=== PATIENT | female | born 1985 | race Caucasian/White ===

== ENCOUNTER 2018-01-24 22:46 | Emergency (ER) | payer MEDICAID, OTHER ==
[~2018-01-24] VITALS: Ht 152.4 cm; Wt 63.1 kg
[~2018-01-24 22:46] MED LIST: ALBU8.5H8 IH; CLIN150C2 PO
[2018-01-24 22:58] VITALS: BP 145/101
[2018-01-24] MEDS ORDERED: clindamycin phosphate 150mg/ml inj. IM ONE (23:50)
[2018-01-24] MEDS ORDERED: CEPH-571 PO (23:51)
[2018-01-24] MEDS ORDERED: SULF1TAB49 PO (23:51)
== END 2018-01-25 00:21 | disposition home or self-care (01) ==
LOC: ER 22:47
DX: L02.416 Cutaneous abscess of left lower limb (principal); F15.90 Other stimulant use, unspecified, uncomplicated; F11.90 Opioid use, unspecified, uncomplicated; Z88.6 Allergy status to analgesic agent; Z79.2 Long term (current) use of antibiotics; Z79.899 Other long term (current) drug therapy
CPT/HCPCS: 96372; 99283; J3490

== ENCOUNTER 2018-03-09 16:02 | Emergency (ER) | payer MEDICAID, OTHER ==
[~2018-03-09] VITALS: Ht 157.5 cm; Wt 68.0 kg
[~2018-03-09 16:02] MED LIST changes: +CEPH-571 PO; -CLIN150C2 PO
[2018-03-09 16:23] VITALS: BP 151/103
[2018-03-09] MEDS ORDERED: LIDOcaine 1% w/EPI 1:100,000 30ml vial (MDV) IJ ONE (16:30)
== END 2018-03-09 17:32 | disposition left against medical advice (07) ==
LOC: ER 16:02
DX: L02.414 Cutaneous abscess of left upper limb (principal); L02.416 Cutaneous abscess of left lower limb; F15.10 Other stimulant abuse, uncomplicated; Z88.6 Allergy status to analgesic agent
CPT/HCPCS: 99281

== ENCOUNTER 2018-06-11 02:02 | Emergency (ER) | payer OTHER ==
[~2018-06-11] VITALS: Ht 152.4 cm; Wt 69.0 kg
[2018-06-11] MEDS ORDERED: CefTRIAXone 2gm/D5W 50ml 50 ML IV ONE (02:25)
[2018-06-11] MEDS ORDERED: normal saline 1000ML IV soln IV ONE (02:25)
[2018-06-11 03:05] LABS: BASOPHILS % (AUTO) 0.4 % (0-1); EOSINOPHILS # (AUTO) 0.1 X10'3 (0-0.9); EOSINOPHILS % (AUTO) 0.5 % (0-6); HEMATOCRIT 41.8 % (35.0-45.0); HEMOGLOBIN 13.8 g/dl (12.0-16.0); LYMPHOCYTES # (AUTO) 2.1 X10'3 (1.1-4.8); LYMPHOCYTES % (AUTO) 19.3 % (21-51); MEAN CORPUSCULAR HEMOGLOBIN 26.7 PG (27.0-31.0); MEAN CORPUSCULAR HGB CONC 32.9 g/dL (33.0-36.5); MEAN CORPUSCULAR VOLUME 81.2 FL (78-98); MEAN PLATELET VOLUME 8.4 FL (7.4-10.4); MONOCYTES # (AUTO) 0.5 X10'3 (0-0.9); MONOCYTES % (AUTO) 4.3 % (2-12); NEUTROPHILS # (AUTO) 8.2 X10'3 (1.8-7.7); NEUTROPHILS % (AUTO) 75.5 % (42-75); PLATELET COUNT 250 X10'3 (140-440); RED BLOOD COUNT 5.15 X10'6 (4.20-5.60); RED CELL DISTRIBUTION WIDTH 14.8 % (11.5-14.5); WHITE BLOOD COUNT 10.8 X10'3 (4.5-11.0)
[2018-06-11 03:23] LABS: ALBUMIN 3.2 G/DL (3.4-5.0); ANION GAP 11 (8-16); BILIRUBIN,TOTAL 0.3 MG/DL (0.1-1.0); BLOOD UREA NITROGEN 12 MG/DL (7-18); BUN/CREATININE RATIO 12.9 (6.6-38.0); CALCIUM 8.6 MG/DL (8.5-10.1); CHLORIDE 101 MMOL/L (99-107); CREATININE 0.93 MG/DL (0.40-0.90); GLUCOSE 132 MG/DL (70-104); MAGNESIUM 1.7 MG/DL (1.5-2.4); PARTIAL THROMBOPLASTIN TIME 30 SECONDS (22-32); POTASSIUM 3.7 MMOL/L (3.5-5.1); PROTHROMBIN TIME 10.2 SECONDS (9.0-12.0); SODIUM 137 MMOL/L (135-145); TOTAL CARBON DIOXIDE 25.4 MMOL/L (24-32); TOTAL PROTEIN 7.4 G/DL (6.4-8.2); eGFR 70 ML/MIN
[2018-06-11 03:24] LABS: ALANINE AMINOTRANSFERASE 20 U/L (12-78); ALBUMIN/GLOBULIN RATIO 0.8 (1.1-1.5); ALKALINE PHOSPHATASE 69 IU/L (46-116); ASPARTATE AMINO TRANSFERASE 14 U/L (10-37)
[2018-06-11 03:59] VITALS: BP 158/102
[2018-06-11] MEDS ORDERED: CEPH-572 PO (04:01)
[2018-06-11] MEDS ORDERED: CLIN150C8 PO (04:01)
== END 2018-06-11 04:41 | disposition home or self-care (01) ==
LOC: ER 02:03
DX: L03.116 Cellulitis of left lower limb (principal); L03.115 Cellulitis of right lower limb; F15.90 Other stimulant use, unspecified, uncomplicated; F11.90 Opioid use, unspecified, uncomplicated; Z88.6 Allergy status to analgesic agent; Z79.2 Long term (current) use of antibiotics; Z79.899 Other long term (current) drug therapy
CPT/HCPCS: 36415; 71045; 80053; 83605; 83735; 84145; 85025; 85610; 85730; 87040; 93005; 96365; 99284; J0696; J7030

== ENCOUNTER 2020-03-22 11:16 | Emergency (ER) | payer SELFPAY ==
[~2020-03-22] VITALS: Ht 160 cm; Wt 68.2 kg
[~2020-03-22 11:16] MED LIST changes: +CLIN150C8 PO
[2020-03-22 12:15] VITALS: BP 158/108
== END 2020-03-22 12:22 | disposition home or self-care (01) ==
LOC: ER 11:17
DX: R09.81 Nasal congestion (principal); J02.9 Acute pharyngitis, unspecified; R42 Dizziness and giddiness; I10 Essential (primary) hypertension; Z87.448 Personal history of other diseases of urinary system; F17.200 Nicotine dependence, unspecified, uncomplicated; Z88.6 Allergy status to analgesic agent; Z79.899 Other long term (current) drug therapy; Z20.828 Contact with and (suspected) exposure to other viral communicable diseases
CPT/HCPCS: 36415; 87635; 99283

== ENCOUNTER 2022-01-02 10:07 | Emergency (ER) | payer MEDICAID ==
[~2022-01-02 10:07] MED LIST changes: +ALBU8.5H17 IH; -ALBU8.5H8 IH
[2022-01-02 11:57] LABS: HIV ANTIBODY 1&2 RAPID NON-REACTIVE (Neg)
--- NOTE | 2022-01-02 12:12 | NUR ---
PT HERE FOR EXPOSURE DRAW, NO MEDICAL REQUESTS.
[2022-01-03 16:06] LABS: HBSAG SCREEN Negative (Negative); HEPATITIS C ANTIBODY >11.0 s/co ratio (0.0-0.9)
== END 2022-01-02 12:14 | disposition home or self-care (01) ==
LOC: ER 10:07
DX: Z02.83 Encounter for blood-alcohol and blood-drug test (principal)
CPT/HCPCS: 36415; 86703; 86706; 86803; 87340

== ENCOUNTER 2022-06-22 22:10 | Emergency (ER) | payer MEDICAID ==
[~2022-06-22] VITALS: Ht 152.4 cm; Wt 75.0 kg
[2022-06-22 22:15] VITALS: BP 152/100
--- NOTE | 2022-06-22 22:58 | NUR ---
Patient not in exam room
[2022-06-22 23:42] LABS: URINE HCG NEGATIVE (NEG)
[2022-06-22 23:43] LABS: CLARITY,URINE SLIGHTLY CLOUDY (Clear); COLOR,URINE YELLOW (Yellow); GLUCOSE, URINE NEGATIVE (Neg); KETONES,URINE NEGATIVE (Neg); LEUKOCYTE ESTERASE ,URINE SMALL (Neg); NITRITES, URINE NEGATIVE (Neg); OCCULT BLOOD,URINE SMALL (Neg); PROTEIN,URINE TRACE mg/dl (Neg); UROBILINOGEN,URINE 0.2 E.U/dL (0.2-1.0)
[2022-06-22 23:52] LABS: UA COLLECTION TYPE NON-SPECIFIED
[2022-06-22 23:54] LABS: AMORPHOUS URATES 1+; BACTERIA,URINE FEW /HPF (Neg); MUCUS STRANDS FEW /LPF (Neg); SQUAMOUS EPITHELIAL CELL,UR FEW /LPF (FEW)
[2022-06-22 23:55] LABS: WBC CLUMPS,URINE FEW /HPF (NEGATIVE)
== END 2022-06-22 23:15 | disposition left against medical advice (07) ==
LOC: ER 22:11
DX: R10.9 Unspecified abdominal pain (principal); I10 Essential (primary) hypertension; Z53.21 Procedure and treatment not carried out due to patient leaving prior to being seen by health care provider; Z88.6 Allergy status to analgesic agent; Z79.899 Other long term (current) drug therapy
CPT/HCPCS: 81001; 81025; 87088

== ENCOUNTER 2022-06-24 00:35 | Inpatient (IN) | payer MEDICAID ==
[~2022-06-24] VITALS: Ht 152.4 cm; Wt 85.0 kg
[2022-06-24 01:19] LABS: BASOPHILS % (AUTO) 0.1 % (0-1); EOSINOPHILS % (AUTO) 0.1 % (0-6); HEMATOCRIT 35.5 % (35.0-45.0); HEMOGLOBIN 11.3 g/dl (12.0-16.0); LYMPHOCYTES # (AUTO) 1.9 X10'3 (1.1-4.8); LYMPHOCYTES % (AUTO) 9.3 % (21-51); MEAN CORPUSCULAR HEMOGLOBIN 22.4 PG (27.0-31.0); MEAN CORPUSCULAR HGB CONC 31.9 g/dL (33.0-36.5); MEAN CORPUSCULAR VOLUME 70.4 FL (78-98); MEAN PLATELET VOLUME 7.9 FL (7.4-10.4); MONOCYTES # (AUTO) 1.5 X10'3 (0-0.9); MONOCYTES % (AUTO) 7.1 % (2-12); NEUTROPHILS # (AUTO) 17.5 X10'3 (1.8-7.7); NEUTROPHILS % (AUTO) 83.4 % (42-75); PLATELET COUNT 258 X10'3 (140-440); RED BLOOD COUNT 5.05 X10'6 (4.20-5.60); RED CELL DISTRIBUTION WIDTH 17.1 % (11.5-14.5); WHITE BLOOD COUNT 20.9 X10'3 (4.5-11.0)
[2022-06-24 01:31] LABS: ALANINE AMINOTRANSFERASE 23 U/L (12-78); ALBUMIN/GLOBULIN RATIO 0.7 (1.1-1.5); ALKALINE PHOSPHATASE 99 IU/L (46-116); ANION GAP 11 (8-16); ASPARTATE AMINO TRANSFERASE 14 U/L (10-37); BLOOD UREA NITROGEN 16 MG/DL (7-18); BUN/CREATININE RATIO 17.6 (6.6-38.0); CALCIUM 8.8 MG/DL (8.5-10.1); CHLORIDE 98 MMOL/L (99-107); CREATININE 0.91 MG/DL (0.40-0.90); GLUCOSE 86 MG/DL (70-104); LIPASE < 50 U/L (73-393); POTASSIUM 3.3 MMOL/L (3.5-5.1); SODIUM 135 MMOL/L (135-145); TOTAL CARBON DIOXIDE 25.8 MMOL/L (24-32); TOTAL PROTEIN 7.6 G/DL (6.4-8.2); eGFR 70 ML/MIN
[2022-06-24] MEDS ORDERED: morphine 4 MG/ML inj SYRINge IV ONE (01:40)
[2022-06-24] MEDS ORDERED: normal saline 1000ml 1,000 ML IV ONE (01:40)
[2022-06-24] MEDS ORDERED: ondansetron/PF 4mg/2ml inj IV ONE (01:40)
[2022-06-24] MEDS ORDERED: CefTRIAXone 2gm/D5W 50ml BAG 50 ML IV ONE (01:40)
--- NOTE | 2022-06-24 03:22 | NUR ---
Patient back from CT.
[2022-06-24] MEDS ORDERED: metroNIDAZOLE-Flagyl 500mg/NS 100 ML IV STA (05:30)
[2022-06-24] MEDS ORDERED: potassium Cl 40MEQ/1/2NS 520ml 520 ML IV PRN (05:55)
[2022-06-24] MEDS: normal saline 1000ml 1,000 ML IV SCH ×2 (05:55→15:55)
[2022-06-24] MEDS ORDERED: magnesium 4gm in 100ml NS 100 ML IV PRN (05:55)
[2022-06-24] MEDS ORDERED: ondansetron/PF 4mg/2ml inj IV PRN (05:55)
[2022-06-24] MEDS ORDERED: potassium Cl 20 mEq SR tablet PO PRN ×2 (05:55)
[2022-06-24] MEDS ORDERED: magnesium Cl slow-release 64mg tablet PO PRN (05:55)
[2022-06-24] MEDS ORDERED: morphine 2 MG/ML inj. syringe IV PRN (05:55)
[2022-06-24] MEDS ORDERED: acetaminophen 325mg tablet PO PRN (05:55)
[2022-06-24 06:30] LABS: MAGNESIUM 1.6 MG/DL (1.5-2.4); POTASSIUM 3.9 MMOL/L (3.5-5.1)
[2022-06-24 06:56] LABS: URINE HCG NEGATIVE (NEG)
[2022-06-24 07:07] LABS: CLARITY,URINE CLOUDY (Clear); COLOR,URINE ORANGE (Yellow)
[2022-06-24 07:20] LABS: UA COLLECTION TYPE CLN CATCH MIDSTREAM
[2022-06-24 07:21] LABS: SQUAMOUS EPITHELIAL CELL,UR MANY /LPF (FEW)
[2022-06-24 07:23] LABS: MUCUS STRANDS MODERATE /LPF (Neg)
[2022-06-24 07:25] LABS: BACTERIA,URINE FEW /HPF (Neg); RBC,URINE 0-2 /HPF (0-2); TRANSITIONAL EPI CELLS,URINE FEW /HPF; WBC,URINE 0-4 /HPF (0-4)
[2022-06-24 07:28] LABS: RENAL CELLS, URINE FEW /HPF
[2022-06-24] MEDS: metroNIDAZOLE-Flagyl 500mg/NS 100 ML IV SCH ×2 (08:00→16:42)
[2022-06-24] MEDS: K and/or MAG REPLACEMENT MC SCH ×2 (08:00→20:00)
[2022-06-24] MEDS ORDERED: CefTRIAXone/D5W-Rocephin 1gm 50 ML IV SCH (08:00)
[2022-06-24 09:29] LABS: URINE AMPHETAMINE SCREEN POSITIVE (Neg); URINE BARBITUATE SCREEN NEGATIVE (Neg); URINE BENZODIAZEPINES SCREEN NEGATIVE (Neg); URINE CANNABINOID SCREEN NEGATIVE (Neg); URINE COCAINE SCREEN NEGATIVE (Neg); URINE METHADONE SCREEN NEGATIVE (Neg); URINE OPIATE SCREEN POSITIVE (Neg); URINE PHENCYCLIDINE SCREEN NEGATIVE (Neg)
[2022-06-24] MEDS: morphine 2 MG/ML inj. syringe IV PRN ×3 (09:29→16:44)
[2022-06-24 11:00] VITALS: BP 118/69
--- NOTE | 2022-06-24 11:03 | NUR ---
Patient in room ED 1. I have received report from Zaria in ED and had the opportunity to ask questions and assume patient care.
[2022-06-24] MEDS ORDERED: NO HOME MEDS (17:19)
[2022-06-24 18:00] VITALS: BP 111/69
--- NOTE | 2022-06-24 18:39 | NUR ---
Problems reprioritized. Patient report given, questions answered & plan of care reviewed with
--- NOTE | 2022-06-24 19:04 | NUR ---
Patient in room [facility]. I have received report from LOURDES Johnson and had the opportunity to ask questions and assume patient care.
--- NOTE | 2022-06-24 20:20 | NUR ---
pt expressed that she wanted to go AMA. was notified. Stated he would come speak with pt. After doing so, pt still wanted to leave. Paperwork was filled out by and pt signed the AMA form. pt escorted out of facility by security. pt left at 2030.
[2022-06-25] MEDS ORDERED: heparin, porcine 5000 units/ml vial SQ SCH (08:00)
== END 2022-06-24 20:45 | disposition left against medical advice (07) ==
LOC: ER 00:36 → ED HOLD 05:56 → SUR 3N 11:32
PROVIDERS: ADMIT Internal Medicine; ATTEND Family Medicine
DX: K81.0 Acute cholecystitis (principal); B19.20 Unspecified viral hepatitis C without hepatic coma; Z53.29 Procedure and treatment not carried out because of patient's decision for other reasons; I10 Essential (primary) hypertension; Z88.6 Allergy status to analgesic agent; Z98.891 History of uterine scar from previous surgery; Z79.899 Other long term (current) drug therapy
CPT/HCPCS: 36415; 74176; 76700; 80053; 80305; 81001; 81025; 83605; 83690; 83735; 84132; 84145; 85025; 87040; 87081; 99285; G0378; J0696; J2270; J2405; J3490; J7030

== ENCOUNTER 2022-07-16 21:35 | Emergency (ER) | payer MEDICAID ==
[~2022-07-16] VITALS: Ht 152.4 cm; Wt 79.8 kg
[~2022-07-16 21:35] MED LIST changes: -ALBU8.5H17 IH; -CEPH-571 PO; -CLIN150C8 PO; +NO HOME MEDS
[2022-07-16 22:35] VITALS: BP 137/90
== END 2022-07-17 00:44 | disposition left against medical advice (07) ==
LOC: ER 21:36
DX: Z48.00 Encounter for change or removal of nonsurgical wound dressing (principal); Z53.21 Procedure and treatment not carried out due to patient leaving prior to being seen by health care provider
CPT/HCPCS: 99281

== ENCOUNTER 2022-07-17 19:55 | Emergency (ER) | payer MEDICAID ==
[~2022-07-17] VITALS: Ht 152.4 cm; Wt 72.7 kg
[2022-07-17 20:11] VITALS: BP 145/94
== END 2022-07-17 20:49 | disposition home or self-care (01) ==
LOC: ER 19:55
DX: Z48.00 Encounter for change or removal of nonsurgical wound dressing (principal); I10 Essential (primary) hypertension; Z87.448 Personal history of other diseases of urinary system; Z88.6 Allergy status to analgesic agent; Z88.8 Allergy status to other drugs, medicaments and biological substances
CPT/HCPCS: 99281

== ENCOUNTER 2022-07-24 01:13 | Emergency (ER) | payer MEDICAID ==
[~2022-07-24] VITALS: Ht 152.4 cm; Wt 77.3 kg
[2022-07-24] MEDS ORDERED: famotidine 20mg tablet PO ONE (03:45)
[2022-07-24] MEDS ORDERED: ondansetron 4mg rapidly disintigrating tab PO ONE (03:45)
--- NOTE | 2022-07-24 03:46 | NUR ---
Gave pt water to drink. Per physician will give pt one hour to give urine sample.
--- NOTE | 2022-07-24 04:48 | NUR ---
Urine sample obtained.
[2022-07-24 04:49] LABS: CLARITY,URINE SLIGHTLY CLOUDY (Clear); GLUCOSE, URINE NEGATIVE (Neg); KETONES,URINE 40 mg/dl (Neg); LEUKOCYTE ESTERASE ,URINE NEGATIVE (Neg); NITRITES, URINE NEGATIVE (Neg); OCCULT BLOOD,URINE NEGATIVE (Neg); PROTEIN,URINE 30 mg/dl (Neg); URINE HCG NEGATIVE (NEG)
[2022-07-24 04:51] LABS: COLOR,URINE DARK YELLOW (Yellow); UA COLLECTION TYPE CLN CATCH MIDSTREAM
[2022-07-24 04:56] LABS: BACTERIA,URINE 2+ /HPF (Neg); HYALINE CASTS 0-3 /LPF (NEGATIVE); MUCUS STRANDS FEW /LPF (Neg); RBC,URINE 0-2 /HPF (0-2); SQUAMOUS EPITHELIAL CELL,UR MODERATE /LPF (FEW); WBC,URINE 0-4 /HPF (0-4); YEAST FEW /HPF (NEGATIVE)
[2022-07-24] MEDS ORDERED: ONDA8TAB13 PO (05:58)
--- NOTE | 2022-07-24 07:00 | NUR ---
Pt resting with eyes closed, effortless respirations observed. Awaiting CT results, pt currently without needs.
--- NOTE | 2022-07-24 08:58 | NUR ---
RECEIVED A FAXED COPY OF ABD CT RESULTS AND GIVEN TO DR RESTREPO
[2022-07-24 10:02] LABS: BASOPHILS % (AUTO) 0.5 % (0-1); EOSINOPHILS # (AUTO) 0.1 X10'3 (0-0.9); EOSINOPHILS % (AUTO) 0.7 % (0-6); HEMATOCRIT 28.5 % (35.0-45.0); LYMPHOCYTES # (AUTO) 2.1 X10'3 (1.1-4.8); LYMPHOCYTES % (AUTO) 20.7 % (21-51); MEAN CORPUSCULAR HEMOGLOBIN 20.6 PG (27.0-31.0); MEAN CORPUSCULAR HGB CONC 31.4 g/dL (33.0-36.5); MEAN CORPUSCULAR VOLUME 65.6 FL (78-98); MEAN PLATELET VOLUME 7.2 FL (7.4-10.4); MONOCYTES # (AUTO) 0.8 X10'3 (0-0.9); MONOCYTES % (AUTO) 7.8 % (2-12); NEUTROPHILS # (AUTO) 7.2 X10'3 (1.8-7.7); NEUTROPHILS % (AUTO) 70.3 % (42-75); PLATELET COUNT 399 X10'3 (140-440); RED BLOOD COUNT 4.35 X10'6 (4.20-5.60); RED CELL DISTRIBUTION WIDTH 17.6 % (11.5-14.5); WHITE BLOOD COUNT 10.2 X10'3 (4.5-11.0)
[2022-07-24 10:16] LABS: PLATELET ESTIMATE NORMAL
[2022-07-24 10:18] LABS: ANISOCYTOSIS 1+; ELLIPTOCYTES FEW; HYPOCHROMASIA 2+; MICROCYTOSIS 2+; POLYCHROMASIA 1+; ROULEAUX 1+
[2022-07-24 10:20] LABS: ALANINE AMINOTRANSFERASE 14 U/L (12-78); ALBUMIN 2.2 G/DL (3.4-5.0); ALBUMIN/GLOBULIN RATIO 0.4 (1.1-1.5); ALKALINE PHOSPHATASE 176 IU/L (46-116); ANION GAP 9 (8-16); ASPARTATE AMINO TRANSFERASE 16 U/L (10-37); BILIRUBIN,TOTAL 0.4 MG/DL (0.1-1.0); BLOOD UREA NITROGEN 18 MG/DL (7-18); BUN/CREATININE RATIO 21.4 (10.0-20.0); CALCIUM 9.2 MG/DL (8.5-10.1); CHLORIDE 96 MMOL/L (99-107); CREATININE 0.84 MG/DL (0.40-0.90); GLUCOSE 90 MG/DL (70-104); LIPASE < 50 U/L (73-393); POTASSIUM 3.6 MMOL/L (3.5-5.1); SODIUM 139 MMOL/L (135-145); TOTAL PROTEIN 8.3 G/DL (6.4-8.2); eGFR 77 ML/MIN
[2022-07-24] MEDS ORDERED: metoclopramide 5 mg/ml inj IV ONE (10:20)
[2022-07-24] MEDS ORDERED: FERR325T28 PO (11:17)
[2022-07-24] MEDS ORDERED: HYDR-3965 PO (11:17)
[2022-07-24] MEDS ORDERED: METO-292 PO (11:17)
--- NOTE | 2022-07-24 11:38 | NUR ---
PT GIVEN WATER TO DRINK FOR PO CHALLENGE. PT TO BE DC'D IF ABLE TO TOLERATE AND KEEP FLUIDS DOWN
[2022-07-24 12:23] VITALS: BP 125/74
== END 2022-07-24 12:26 | disposition home or self-care (01) ==
LOC: ER 01:15
DX: S30.1XXS Contusion of abdominal wall, sequela (principal); R11.2 Nausea with vomiting, unspecified; R10.9 Unspecified abdominal pain; D64.9 Anemia, unspecified; I10 Essential (primary) hypertension; Z88.6 Allergy status to analgesic agent; Z79.899 Other long term (current) drug therapy; Z90.49 Acquired absence of other specified parts of digestive tract
CPT/HCPCS: 36415; 74018; 74176; 80053; 81001; 81025; 83690; 85008; 85025; 87088; 96374; 99285; J2765; J7030

== ENCOUNTER 2022-08-24 10:59 | Emergency (ER) | payer MEDICAID ==
[~2022-08-24] VITALS: Ht 152.4 cm; Wt 72.7 kg
[~2022-08-24 10:59] MED LIST changes: +FERR325T28 PO; +HYDR-3965 PO; +METO-292 PO; +ONDA8TAB13 PO
[2022-08-24 12:36] VITALS: BP 161/109
== END 2022-08-24 15:00 | disposition home or self-care (01) ==
LOC: ER 11:00
DX: F11.20 Opioid dependence, uncomplicated (principal); Z00.8 Encounter for other general examination; I10 Essential (primary) hypertension; Z90.49 Acquired absence of other specified parts of digestive tract; Z88.6 Allergy status to analgesic agent; Z79.899 Other long term (current) drug therapy
CPT/HCPCS: 99281